=== PATIENT | female | born 1970 | race African-American/Black ===

== ENCOUNTER 2018-01-09 21:07 | Observation (INO) | payer SELFPAY ==
[2018-01-09 21:45] LABS: #Basophils 0.1 thou/uL (0.0-0.2); #Eosinphils 0.1 thou/uL (0.0-0.7); #Lymphocytes 2.9 thou/uL (1.20-3.40); #Monocytes 0.7 thou/uL (0.11-0.59); #Neutrophils 4.9 thou/uL (1.40-6.50); %Basophils 1.4 % (0.0-1.0); %Eosinophils 1.6 % (0.0-10.0); %Lymphocytes 33.2 % (21.0-51.0); %Monocytes 7.8 % (0.0-10.0); Hemoglobin 15.2 g/dL (12.0-16.0); Mean Corpuscular HGB CONC 32.8 g/dL (32.0-36.0); Mean Corpuscular Hemoglobin 30.6 pg (27.0-31.0); Mean Corpuscular Volume 93.4 fL (78.0-98.0); Mean Platelet Volume 8.1 fL (7.4-10.4); Platelet Count 242 thou/uL (130-400); RBC Distribution Width 13.4 % (11.5-14.5); Red Blood Cell (RBC) Count 4.96 mill/uL (4.20-5.40); White Blood Cell (WBC) Count 8.8 thou/uL (4.8-10.8)
[2018-01-09] MEDS ORDERED: Benzonatate 100 MG CAP ONE (21:49)
[2018-01-09 22:07] LABS: ALT (SGPT) 17 U/L (8-55); AST (SGOT) 18 U/L (5-34); Albumin 3.9 g/dL (3.5-5.0); Alkaline Phosphatase 91 U/L (40-150); Anion Gap 14 mmol/L (10-20); BUN (Urea Nitrogen) 6 mg/dL (7.0-18.7); Bilirubin, Total 0.5 mg/dL (0.2-1.2); Calc. Creatinine Clearance 0 mL/min (70-130); Calcium 9.1 mg/dL (7.8-10.44); Carbon Dioxide 26 mmol/L (22-29); Chloride 104 mmol/L (98-107); Estimated GFR-MDRD Greater than 90; Globulin 3.2 g/dL (2.4-3.5); Glucose 159 mg/dL (70-105); Potassium 3.5 mmol/L (3.5-5.1); Protein, Total 7.1 g/dL (6.0-8.3); Sodium 140 mmol/L (136-145)
[2018-01-09 22:09] LABS: Troponin I Less than 0.010 ng/mL (< 0.028)
--- NOTE | 2018-01-09 22:09 | RAD ---
CHEST PA AND LATERAL: History: 47-year-old female with history of chest pain. Comparison: 05-14-14 FINDINGS: Heart size is normal. The lungs are clear. IMPRESSION: No acute intrathoracic disease. POS: [facility]
[2018-01-09] MEDS ORDERED: cloNIDine 0.1 MG TAB PO PRN (22:46)
[2018-01-09] MEDS ORDERED: Dextrose 5% in Water 1,000 ML IV PRN (22:46)
[2018-01-09] MEDS ORDERED: Dextrose 50% Abboject 50 ML SYRINGE SLOW IVP PRN (22:46)
[2018-01-09] MEDS ORDERED: Ondansetron PF 4 MG/2 ML Vial IVP PRN ×2 (22:46)
[2018-01-09] MEDS ORDERED: Nitroglycerin 0.4 MG TAB (25 Tab Bottle) PO PRN (22:46)
[2018-01-09] MEDS ORDERED: HumaLOG 300 UNITS/3 ML VIAL SC PRN ×2 (22:46)
[2018-01-09] MEDS ORDERED: hydrALAZINE 20 MG/ML VIAL SLOW IVP PRN (22:46)
[2018-01-09] MEDS ORDERED: Senokot S 8.6-50 MG TAB PO PRN (22:46)
[2018-01-09] MEDS ORDERED: HYDROcodone/Acetaminophen 5/325 mg Tablet PO PRN (22:46)
[2018-01-09] MEDS ORDERED: Bisacodyl 5 MG TAB PO PRN (22:46)
[2018-01-09] MEDS ORDERED: Nitroglycerin 2% Ointment 1 INCH/1 GM Packet ONE (22:46)
[2018-01-09] MEDS ORDERED: Calcium Carbonate 500 MG ChewTAB PO PRN (22:46)
[2018-01-09] MEDS ORDERED: Acetaminophen 325 MG TAB PO PRN (22:46)
[2018-01-10 00:24] VITALS: BMI 34.3
[2018-01-10 01:00] LABS: Troponin I Less than 0.010 ng/mL (< 0.028)
[2018-01-10 03:27] LABS: #Basophils 0.1 thou/uL (0.0-0.2); #Eosinphils 0.1 thou/uL (0.0-0.7); #Lymphocytes 2.8 thou/uL (1.20-3.40); #Monocytes 0.6 thou/uL (0.11-0.59); #Neutrophils 3.9 thou/uL (1.40-6.50); %Basophils 1.1 % (0.0-1.0); %Eosinophils 1.9 % (0.0-10.0); %Lymphocytes 36.6 % (21.0-51.0); %Monocytes 8.1 % (0.0-10.0); %Neutrophils 52.4 % (42.0-75.0); Mean Corpuscular HGB CONC 32.5 g/dL (32.0-36.0); Mean Corpuscular Hemoglobin 30.4 pg (27.0-31.0); Mean Corpuscular Volume 93.7 fL (78.0-98.0); Mean Platelet Volume 8.3 fL (7.4-10.4); Platelet Count 206 thou/uL (130-400); RBC Distribution Width 13.3 % (11.5-14.5); Red Blood Cell (RBC) Count 4.61 mill/uL (4.20-5.40); White Blood Cell (WBC) Count 7.5 thou/uL (4.8-10.8)
[2018-01-10 03:50] LABS: Troponin I Less than 0.010 ng/mL (< 0.028)
[2018-01-10 03:53] LABS: Anion Gap 14 mmol/L (10-20); BUN (Urea Nitrogen) 7 mg/dL (7.0-18.7); Calc. Creatinine Clearance 118 mL/min (70-130); Calcium 8.6 mg/dL (7.8-10.44); Carbon Dioxide 26 mmol/L (22-29); Cardiac Risk 3.4 (Less than 4.5); Chloride 104 mmol/L (98-107); Cholesterol 198 mg/dl (< 200 Desired); Estimated GFR-MDRD Greater than 90; Glucose 230 mg/dL (70-105); HDL Cholesterol 59 mg/dL (>60 Neg Risk); LDL Cholesterol, Calculated 112 mg/dL; Potassium 3.6 mmol/L (3.5-5.1); Sodium 140 mmol/L (136-145); Triglycerides 136 mg/dL (Less than 150)
[2018-01-10] MEDS ORDERED: Enoxaparin Sodium 40 MG/0.4 ML SYRINGE SC SCH (09:00)
[2018-01-10] MEDS ORDERED: Famotidine 20 MG TAB PO SCH (09:00)
[2018-01-10] MEDS ORDERED: Aspirin 325 MG TAB PO SCH (09:00)
--- NOTE | 2018-01-10 09:49 | HP ---
DATE OF ADMISSION: 01/09/2018 PRIMARY CARE PHYSICIAN: Dr. Yamileth Tate in [place]. CHIEF COMPLAINT: Chest pain. HISTORY OF PRESENT ILLNESS: Ms. Browning is a pleasant 47-year-old female with past medical history of diabetes, hypertension, dyslipidemia, and tobacco abuse who presented to the emergency room with abo ve-mentioned complaint. History is mainly obtained by the patient herself and electronic medical rec ords have been reviewed. Ms. Browning reported to [facility] today with sudden onset of sharp chest pain. 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 She reports that she has been feeling ill yesterday and has had some episodes of vomiti ng. Denies any abdominal pain or diarrhea. Denies any sick contacts. She denies any similar events in the past. The chest pain was pretty severe. It was not associated with any diaphoresis Ms. Browning reports that this chest pain was not associated with any diaphoresis. She did have some s hortness of breath. She does have some cough for the last few days. She continues to smoke about 10 cigarettes per day. She used to smoke about one pack per day up until 1 month ago. No significant family history of coronary artery disease or stroke. Upon presentation to our emergency room, the patient's blood pressure was 161/80. She reports that s he has run out from all of her medications for the last 2 days because of an insurance change. Her i nitial workup included 12-lead EKG and cardiac enzymes and chest x-ray. All of these were unremarkab le. No acute abnormality noticed. She is now being admitted for further workup and rule out acute c oronary syndrome. PAST MEDICAL HISTORY: 1. Diabetes mellitus. 2. Hypertension. 3. Dyslipidemia. 4. Tobacco abuse. PAST SURGICAL HISTORY: Tubal ligation and hysterectomy. PAST PSYCHIATRIC HISTORY: No anxiety, no depression. SOCIAL HISTORY: Currently smoking half pack of cigarettes per day, but used to smoke 1 pack of cigar ettes up until 1 month ago. No history of alcohol or drug abuse. FAMILY HISTORY: Some type of throat cancer in her father. No family history of premature coronary a rtery disease or stroke. ALLERGIES: Include, 1. ACETAMINOPHEN. 2. HYDROCODONE. 3. VICODIN. CURRENT MEDICATIONS: Amlodipine 5 mg daily, hydrochlorothiazide 12.5 mg daily, metformin 500 p.o. b. i.d., and lisinopril 40 mg daily. Please note that the patient has not been able to take these medic ations for the last 2 days. REVIEW OF SYSTEMS: A 12-point review of systems is done, it is negative except for those mentioned i n the history and physical. LABORATORY DATA: CBC is unremarkable. Serum chemistries unremarkable. Blood sugar 159. Cardiac en zymes within normal limit. Chest x-ray by my review has no evidence of acute cardiopulmonary abnorma lity. A 12-lead EKG by my review shows no ST or T-wave changes. PHYSICAL EXAMINATION: VITAL SIGNS: Upon presentation, blood pressure 161/80, pulse of 81, respirations 16, saturating 99% on room air, and temperature 98.7. GENERAL: No acute distress, awake, alert, oriented x3. HEENT: Mucous membrane is moist and pink. No oropharyngeal exudate or erythema. Head is normocepha lic, atraumatic. Pupils equal, reactive to light and accommodation. Extraocular movement intact. NECK: Supple without any lymphadenopathy, JVD or bruit. CHEST: Clear to auscultation without any wheezing, rales or rhonchi. Rate and rhythm is regular wit hout any murmur, rubs or gallops. There is no tenderness to palpation in the anterior chest area. ABDOMEN: Obese, soft, nontender, nondistended with positive bowel sounds. EXTREMITIES: Free of any cyanosis, clubbing, or edema. NEUROLOGIC: Nonfocal. SKIN: Free of any rashes or bruises. Feel warm and dry to touch. PSYCHIATRIC: Normal affect. IMPRESSION AND PLAN: 1. Chest pain. The patient has multiple risk factors including uncontrolled diabetes as well as tob acco abuse. She will be admitted to telemetry for further risk stratification and we will obtain a [facility] medicine stress test. We will continue to trend serial cardiac enzymes and check lipid panel in the morning. She will be restarted on her home medications. We will continue her on aspirin and she has received the first dose tonight in the ER. Her symptoms can also be coming from epigastric r egion with gastritis, given her recent vomiting. We will put her on Pepcid b.i.d. to see if that bryant l help with these symptoms. 2. Hypertension. Restart her home medications. The patient will need prescription for all the new medications. 3. Diabetes mellitus. We will start her on insulin sliding scale and monitor Accu-Cheks frequently. Carb consistent diet will be started. 4. Dyslipidemia. The patient is currently not on any home medication for this. Check lipid panel i n the morning. 5. Deep venous thrombosis and gastrointestinal prophylaxis. DISPOSITION: Ms. Browning is currently being admitted to the hospital for chest pain workup and ACS ru le out. Estimated length of stay is less than 2 midnights. Further management will depend upon her clinical course.
[2018-01-10] MEDS ORDERED: ADENOSINE 60 MG/20 ML VIAL ONE (10:33)
--- NOTE | 2018-01-10 14:48 | NM ---
NUCLEAR MEDICINE CARDIAC SPECT WITH EF AND WALL MOTION: History: 47-year-old female with history of chest pain, hypertension, diabetes mellitus, dyslipidemia and smok er history. FINDINGS: Adenosine Sestamibi study is performed. 27.0 mCi Technetium 99M Sestamibi intravenously was injected for stress images and 10.8 mCi Technetiu m 99M Sestamibi intravenously is injected for resting images. Multiple SPECT images in the short axis, vertical long axis, and horizontal long axis demonstrates n o scan evidence for infarct or ischemia. TID 1.12 LHR 0.29 EDV is elevated, 139 ml. EF 47% Myocardial Perfusion Wall Motion: There is mild diffuse hypokinesis. No significant focal wall motion abnormality. IMPRESSION: No scan evidence for infarct is ischemia. Increased EDV. Very mild diffuse hypokinesis without focal wall motion abnormality. POS: [facility]
[2018-01-10 15:31] VITALS: BP 153/76; TEMP 98.3
[2018-01-10] MEDS ORDERED: HYDROcodone/Acetaminophen 5/325 mg Tablet PO PRN (15:58)
[2018-01-11] MEDS ORDERED: Hydrochlorothiazide 25 MG TAB PO SCH (09:00)
[2018-01-11] MEDS ORDERED: Lisinopril 20 MG TAB PO SCH (09:00)
[2018-01-11] MEDS ORDERED: Amlodipine 5 MG TAB PO SCH (09:00)
--- NOTE | 2018-01-11 15:35 | DIS ---
DATE OF ADMISSION: 01/09/2018 DATE OF DISCHARGE: 01/10/2018 DISCHARGE DIAGNOSES: 1. Chest pain, noncardiac, stable. 2. Hypertension, stable. 3. Diabetes mellitus, stable. 4. Dyslipidemia, stable. CONSULTATIONS: None. PERTINENT LABORATORY DATA AND DIAGNOSTIC FINDINGS: WBC 7.5, RBC 4.61, hemoglobin 14.0, platelet coun t 206. Sodium 140, potassium 3.6, creatinine 0.8, estimated GFR greater than 90, glucose 230. Tropo hawk less than 0.010 x2. Lipid panel shows triglycerides 136, total cholesterol 198, LDL 112, HDL 59. Chest x-ray showed no acute intrathoracic disease. Nuclear medicine stress test showed no evidence of ischemia with no wall motion abnormalities. HOSPITAL COURSE: Ms. Browning is a pleasant 47-year-old female who had presented to the [facility] for complaints of chest pain, she was then transferred to [facility]. She h ad also complained of about a 2-week history of dry cough and feeling tired. She had denied any shor tness of breath, abdominal pain, nausea, vomiting, or diarrhea. She denied any fever or chills. Upo n her arrival, chest x-ray was obtained and was unremarkable. Her initial labs were unremarkable. H er white count remained normal and she was afebrile. She, however, complained of substernal chest pa in that had radiated to her back and neck, she had an episode at home of nausea and vomiting, but den ied any nausea or vomiting upon her arrival in the ER. She also had some complaints of diaphoresis. She was admitted under observation on telemetry for chest pain rule out. Serial troponins were less than 0.010 x2. She underwent a nuclear medicine stress test, which was unremarkable and showed no s igns of ischemia. She was seen and examined prior to discharge, she had no further complaints of laura st pain, this had resolved with continuing her home medications for high blood pressure. Her vital s igns remained stable throughout hospital course. She was instructed to follow up with her primary sd re physician, Dr. Yamileth Tate in 1-2 weeks. Prior to coming in to the ER, patient had reported that she ran out of her home medications 2 days prior to arrival. She was provided prescriptions for cur rent home medications including amlodipine 5 mg daily, hydrochlorothiazide 12.5 mg daily, lisinopril 40 mg daily. She had stated that she has not on metformin at home. She had no further symptoms of c hest pain, shortness breath, or abdominal pain. She was deemed medically stable for discharge home o n 01/10/2018. DISCHARGE MEDICATIONS: 1. Metformin 500 mg oral b.i.d. 2. Amlodipine 5 mg oral daily. 3. Hydrochlorothiazide 12.5 mg oral daily. 4. Lisinopril 40 mg oral daily. FOLLOWUP: Patient is to follow up with her PCP, Dr. Yamileth Tate in 1-2 weeks. CONDITION ON DISCHARGE: Stable. DIET: Heart healthy. ACTIVITY: As tolerated. DISPOSITION: Home on 01/10/2018.
== END 2018-01-10 17:52 | disposition home or self-care (01) ==
LOC: ERS 21:07 → 2SW 22:30
PROVIDERS: ADMIT Internal Medicine; ATTEND Internal Medicine
DX: R07.89 Other chest pain (principal); I10 Essential (primary) hypertension; E11.9 Type 2 diabetes mellitus without complications; E78.5 Hyperlipidemia, unspecified; Z79.82 Long term (current) use of aspirin; Z79.899 Other long term (current) drug therapy; Z88.8 Allergy status to other drugs, medicaments and biological substances
CPT/HCPCS: 36415; 36416; 71046; 78452; 80048; 80061; 84484; 85025; 87804; 90471; 90686; 93017; 94640; A9500; G0008; G0378; J0153; J1650; J7620